=== PATIENT | male | born 1945 | race Caucasian/White ===

== ENCOUNTER 2019-03-01 04:30 | Emergency (ER) | payer MEDICARE ==
[2019-03-01] MEDS ORDERED: ONDANSETRON HCL INJ/PF 4 MG/2 ML SDV IV ONE (05:05)
[2019-03-01] MEDS ORDERED: MORPHINE SULFATE 10 MG/ML INJ IV ONE ×2 (05:05→07:31)
--- NOTE | 2019-03-01 05:07 | ER Document Report ---
ED Medical Screen (RME) - General Chief Complaint: Abdominal Pain Stated Complaint: ABDOMINAL PAIN Time Seen by Provider: 03/01/19 04:57 Notes: 73-year-old male comes to the emergency department by EMS for chief complaint of sharp left-sided abdominal pain that started tonight. He does have some radiation to the flank. Some nausea but no vomiting. He does have a history of kidney stone on the same side. He denies hematuria, he is on a blood thinner for a history of extensive clots. He has had hernia repairs but no other abdominal surgeries reported. He was given 30 mg of Toradol IV by EMS. He does report some symptom relief. - Related Data Allergies/Adverse Reactions: No Known Allergies Allergy (Unverified 03/01/19 04:55) Physical Exam - Vital signs Vitals: Temp Pulse Resp BP Pulse Ox 98.4 F 81 20 152/103 H 96 03/01/19 04:38 03/01/19 04:38 03/01/19 04:38 03/01/19 04:38 03/01/19 04:38 - Abdominal Tenderness: Tender - Abdominal pain over the whole left side of the abdomen with some wincing Course - Re-evaluation Re-evalutation: Pain seems to go all the way up into the left upper quadrant on evaluation. CAT scan will be performed, giving more pain medication, work-up pending. Vital signs unremarkable at this time. Patient is not toxic in appearance. I have greeted and performed a rapid initial assessment of this patient. A comprehensive ED assessment and evaluation of the patient, analysis of test results and completion of the medical decision making process will be conducted by additional ED providers. - Vital Signs Vital signs: Temp Pulse Resp BP Pulse Ox 98.4 F 81 20 152/103 H 96 03/01/19 04:38 03/01/19 04:38 03/01/19 04:38 03/01/19 04:38 03/01/19 04:38
--- NOTE | 2019-03-01 06:02 | RADIOLOGY REPORT (SQ) ---
EXAM DESCRIPTION: CT ABDOMEN PELVIS WITHOUT IV CONTRAST COMPLETED DATE/TME: 03/01/2019 05:04 CLINICAL HISTORY: 73 years Male, left sided abd pain, hx kidney stones Comparison: None. Technique: No contrast. Coronal and sagittal reformat. This exam was performed according to our departmental dose-optimization program, which includes automated exposure control, adjustment of the mA and/or kV according to patient size and/or use of iterative reconstruction technique.[facility]: Dose Right [facility]: CareDose [facility]: Dose Right [facility]: Teradose 4D [facility]: [employer] LIMITATIONS: None Findings: Indeterminate 2.8 cm macrolobulated lesion of the left pancreatic tail. Recommend multiphase contrast MRI or CT of the pancreas. Left renal stones measure 1.0 cm and 1.2 cm. Right nephrolithiasis measures up to 0.2 cm. Moderate left perinephric fat stranding. Prominence of the proximal left renal collecting system. 1.2 x 0.6 cm right distal ureteral stone within 3 cm of the urinary bladder. No right-sided hydronephrosis or hydroureter. Likely benign renal cyst(s), not definitively characterized. Atherosclerotic vascular disease. Colonic diverticulosis. Small bilateral inguinal fat only hernia. 3 cm umbilical fat only hernia. [id number] bilateral inguinal fat only hernia, right more than left. Atelectasis/scar. Hepatic steatosis. Suture clips of the anterior abdominal wall, midline. Large notochordal remnant of the superior L2 vertebral body. Degenerative disc disease. No ascites. No pneumoperitoneum. No evidence of appendicitis. Appendix not definitively discerned. No gross evidence of gallbladder inflammation or hepatobiliary obstruction. No bowel obstruction. No evidence of abdominal aortic aneurysm. Unenhanced lower thorax, abdominopelvic structures, and musculoskeleton appear otherwise grossly unremarkable. Impression: 1. Indeterminate 2.8 cm macrolobulated lesion of the left pancreatic tail. Recommend multiphase contrast MRI or CT of the pancreas. 2. Moderate left perinephric fat stranding and prominence of the left proximal renal collecting system. Differential etiologies include recent vesicoureteral reflux, pyelonephritis, or low-grade obstruction. 3. Bilateral nephrolithiasis and 1.2 cm right distal ureteral stone. No significant right-sided hydronephrosis or hydroureter.
--- NOTE | 2019-03-01 06:39 | ER Document Report ---
ED General - General Chief Complaint: Abdominal Pain Stated Complaint: ABDOMINAL PAIN Time Seen by Provider: 03/01/19 04:57 - HPI Notes: This is a pleasant 73-year-old male who presents to the emergency department for evaluation of left-sided flank pain. It began in the middle the night. He states he started vomiting, was questioning whether or not he had food poisoning. He then started having pain more in the left flank, and realized it could potentially be a stone. He denies any gross hematuria. No fevers. His emesis was nonbloody, nonbilious. Normal bowel movements. He had no other acute complaints or concerns. He is here in town visiting his granddaughter. He states he follows with the urologist twice a year. He states they are following a known stone on the left. He has been told that "as long as it does not move, we are okay." - Related Data Allergies/Adverse Reactions: No Known Allergies Allergy (Unverified 03/01/19 04:55) Past Medical History - General Information source: Patient - Social History Smoking Status: Never Smoker Frequency of alcohol use: None Drug Abuse: None Family History: Reviewed & Not Pertinent Patient has suicidal ideation: No Patient has homicidal ideation: No - Past Medical History Cardiac Medical History: Reports: Hx DVT, Hx Pulmonary Embolism Renal/ Medical History: Reports: Hx Benign Prostatic Hyperplasia, Hx Kidney Stones, Hx Renal Insufficiency - Recently told creatinine was mildly elevated. Denies: Hx Peritoneal Dialysis Musculoskeletal Medical History: Reports Other - Chronic back pain Past Surgical History: Reports: Hx Abdominal Surgery - umb hernia repair, Hx Orthopedic Surgery - bilaterl knee; left carpal tunnel, Hx Vascular Surgery - IVC filter Review of Systems - Review of Systems Constitutional: No symptoms reported EENT: No symptoms reported Cardiovascular: No symptoms reported Respiratory: No symptoms reported Gastrointestinal: See HPI Genitourinary: See HPI Male Genitourinary: No symptoms reported Musculoskeletal: No symptoms reported Skin: No symptoms reported Neurological/Psychological: No symptoms reported Physical Exam - Vital signs Vitals: Temp Pulse Resp BP Pulse Ox 98.4 F 81 20 152/103 H 96 03/01/19 04:38 03/01/19 04:38 03/01/19 04:38 03/01/19 04:38 03/01/19 04:38 - Notes Notes: Vital signs reviewed, please refer to chart. Head is normocephalic, atraumatic. Pupils equal round, reactive to light. Neck is supple without meningismus. Heart is regular rate and rhythm. Lungs are clear to auscultation bilaterally. Abdomen is soft, tender in the left mid abdomen and flank without rebound or guarding, normoactive bowel sounds throughout. Extremities without cyanosis, clubbing. Posterior calves are nontender. Peripheral pulses are equal. Skin is warm and dry. Patient is awake, alert, neurological exam is nonfocal. Course - Re-evaluation Re-evalutation: 03/01/19 06:39 Patient presents emergency department for evaluation. He had CT scan and blood work, as well as urinalysis, ordered through triage. He was given Toradol by EMS in route. He was given morphine and Zofran here, rates his pain as "comfortable." 03/01/19 07:27 CT scan, blood work, urinalysis obtained. Blood shows renal insufficiency, not unlikely far from his baseline according to patient and his . CT scan was reviewed with the patient. We did comment on the 1.2 cm stone on the right, but again he has absolutely no symptoms on the right. He has been being followed with ultrasounds on the left. It is likely that the intrarenal stone is the etiology of this pain and stranding. He has a urologist that he sees very frequently back home. He feels comfortable with being followed up there. He is had no fevers. The importance of being reevaluated should he develop fever, intractable vomiting, intractable pain, was stressed to the patient. He understands this. He is under pain management contract. I will go ahead and just dispense 6 [place] from here. He will be given a small amount more morphine to control his pain. Patient was already aware of the pancreatic tail lesion. It is being followed with MRIs. He is to return to the emergency department with worsening or new concerning symptoms of any sort. 03/01/19 07:31 - Vital Signs Vital signs: Temp Pulse Resp BP Pulse Ox 98.4 F 81 11 L 168/94 H 95 03/01/19 04:38 03/01/19 04:38 03/01/19 07:01 03/01/19 07:01 03/01/19 07:01 - Laboratory Result Diagrams: 03/01/19 06:11 03/01/19 06:11 Laboratory results interpreted by me: 03/01/19 03/01/19 03/01/19 06:11 06:11 07:00 RDW 14.2 H Plt Count 148 L Seg Neutrophils % 78.9 H Potassium 3.4 L BUN 30 H Creatinine 1.51 H Est GFR ( Amer) 55 L Est GFR (Non-Af Amer) 46 L Glucose 158 H Urine Blood LARGE H - Diagnostic Test Radiology reviewed: Reports reviewed Discharge - Discharge Clinical Impression: Ureterolithiasis Hydronephrosis Qualifiers: Hydronephrosis type: with renal calculous obstruction Qualified Code(s): N13.2 - Hydronephrosis with renal and ureteral calculous obstruction Condition: Stable Disposition: HOME, SELF-CARE Instructions: Kidney Stone ([facility]) Additional Instructions: Follow-up with your urologist as soon as possible. Continue your Flomax as directed. Zofran as needed for nausea. [place] as needed for breakthrough pain. If you develop fevers, increased vomiting, or any other new or concerning symptoms, return immediately to the emergency department for reevaluation.
[2019-03-01 06:40] LABS: ABSOLUTE EOSINOPHILS # (AUTO) 0.1 10^3/uL (0.0-0.6); ABSOLUTE LYMPHOCYTES (AUTO) 1.5 10^3/uL (0.5-4.7); ABSOLUTE MONOCYTES (AUTO) 0.5 10^3/uL (0.1-1.4); ABSOLUTE NEUT (AUTO) 7.8 10^3/uL (1.7-8.2); BASOPHILS % (AUTO) 0.2 % (0-2); EOSINOPHILS % (AUTO) 0.6 % (0-6); HEMATOCRIT 43.3 % (37.9-51.0); MEAN CORPUSCULAR HEMOGLOBIN 30.9 pg (27.0-33.4); MEAN CORPUSCULAR HGB CONC 34.6 g/dL (32.0-36.0); MEAN CORPUSCULAR VOLUME 89 fl (80-97); MONOCYTES % (AUTO) 5.3 % (3-13); PLATELET COUNT 148 10^3/uL (150-450); RED BLOOD COUNT 4.85 10^6/uL (4.35-5.55); RED CELL DISTRIBUTION WIDTH 14.2 % (11.5-14.0); SEGMENTED NEUTROPHILS % (AUTO) 78.9 % (42-78); TOTAL CELLS COUNTED % (AUTO) 100 %; WHITE BLOOD COUNT 9.9 10^3/uL (4.0-10.5)
[2019-03-01 06:49] LABS: ALANINE AMINOTRANSFERASE 36 U/L (21-72); ALBUMIN 3.9 g/dL (3.5-5.0); ALKALINE PHOSPHATASE 76 U/L (38-126); ANION GAP 9 (5-19); ASPARTATE AMINO TRANSFERASE 36 U/L (17-59); BILIRUBIN,DIRECT 0.2 mg/dL (0.0-0.4); BILIRUBIN,TOTAL 0.9 mg/dL (0.2-1.3); BLOOD UREA NITROGEN 30 mg/dL (7-20); CALCIUM 9.5 mg/dL (8.4-10.2); CARBON DIOXIDE 28 mmol/L (22-30); CHLORIDE 105 mmol/L (98-107); GLUCOSE 158 mg/dL (75-110); LIPASE 108.6 U/L (23-300); POTASSIUM 3.4 mmol/L (3.6-5.0); SODIUM 141.7 mmol/L (137-145); TOTAL PROTEIN 6.8 g/dL (6.3-8.2)
[2019-03-01 07:11] LABS: APPEARANCE,URINE CLEAR; BILIRUBIN,URINE NEGATIVE (NEGATIVE); COLOR,URINE YELLOW; GLUCOSE, URINE NEGATIVE (NEGATIVE); KETONES,URINE NEGATIVE (NEGATIVE)
[2019-03-01 07:12] LABS: LEUKOCYTE ESTERASE,URINE NEGATIVE (NEGATIVE); NITRITE,URINE NEGATIVE (NEGATIVE); PROTEIN,URINE NEGATIVE (NEGATIVE); UROBILINOGEN,URINE NEGATIVE mg/dL (<2.0)
[2019-03-01] MEDS ORDERED: HYDROCODONE/ACETAMINOPHEN 5-325 MG (6 TAB/ER DISP) PO PRN (07:30)
[2019-03-01 08:16] VITALS: BP 147/83
--- NOTE | 2019-03-01 19:19 | EKG REPORT ---
SEVERITY:- ABNORMAL ECG - SINUS RHYTHM FIRST DEGREE AV BLOCK BORDERLINE PROLONGED QT INTERVAL : Confirmed by: Iraida Colon 01-Mar-2019 19:18:26
== END 2019-03-01 08:29 | disposition home or self-care (01) ==
LOC: ER 04:30
DX: N13.2 Hydronephrosis with renal and ureteral calculous obstruction (principal); R10.9 Unspecified abdominal pain; R11.10 Vomiting, unspecified; Z86.718 Personal history of other venous thrombosis and embolism; Z86.711 Personal history of pulmonary embolism
CPT/HCPCS: 93005; 96376; 99284; 96374; 96375; 36415; 83690; 85025; 80053; 81001; 84484; 74176; 93010; J2270; J2405; A9270

== ENCOUNTER 2019-03-02 20:21 | Emergency (ER) | payer MEDICARE ==
[2019-03-02] MEDS ORDERED: NORMAL SALINE 1000 ML 1,000 ML IV ONE ×2 (21:11→23:08)
[2019-03-02] MEDS ORDERED: ONDANSETRON HCL INJ/PF 4 MG/2 ML SDV IV ONE (21:11)
[2019-03-02] MEDS ORDERED: HYDROMORPHONE HCL INJ/PF 2 MG/ML AMPULE IV ONE (21:11)
--- NOTE | 2019-03-02 21:12 | ER Document Report ---
ED GI/ - General Chief Complaint: Abdominal Pain Stated Complaint: LEFT ABDOMINAL PAIN Time Seen by Provider: 03/02/19 21:03 Notes: Patient is a 73-year-old male that comes to the emergency department for chief complaint of sharp left-sided abdominal pain with some radiation to the flank. He reports nausea but denies vomiting. He was seen here on 03/01/2019, had a CAT scan, diagnosed with 1.2 cm kidney stone in the right ureter and then kidney stone in the left kidney. He insists he has no pain on the right side. He has a history of hernia repairs, he follows with urology [id number] in [place]. He also has a history of extensive blood clots, on blood thinners, denies hematuria that is noticeable. He states that he received Toradol by EMS and feels much better. He states this was the same as before, he felt good after going home until just now. No fever reported. He is on pain management at home for his back. - Related Data Allergies/Adverse Reactions: No Known Allergies Allergy (Unverified 03/01/19 04:55) Past Medical History - General Information source: Patient - Social History Smoking Status: Never Smoker Frequency of alcohol use: None Drug Abuse: None Lives with: Family Family History: Reviewed & Not Pertinent - Past Medical History Cardiac Medical History: Reports: Hx DVT, Hx Pulmonary Embolism Renal/ Medical History: Reports: Hx Benign Prostatic Hyperplasia, Hx Kidney Stones, Hx Renal Insufficiency - Recently told creatinine was mildly elevated. Denies: Hx Peritoneal Dialysis Past Surgical History: Reports: Hx Abdominal Surgery - umb hernia repair, Hx Orthopedic Surgery - bilaterl knee; left carpal tunnel, Hx Vascular Surgery - IVC filter - Immunizations Immunizations up to date: Yes Hx Diphtheria, Pertussis, Tetanus Vaccination: Yes Review of Systems - Review of Systems Constitutional: No symptoms reported EENT: No symptoms reported Cardiovascular: No symptoms reported Respiratory: No symptoms reported Gastrointestinal: See HPI Genitourinary: See HPI Male Genitourinary: No symptoms reported Musculoskeletal: No symptoms reported Skin: No symptoms reported Hematologic/Lymphatic: No symptoms reported Neurological/Psychological: No symptoms reported Physical Exam - Notes Notes: GENERAL: Mildly uncomfortable, no severe distress, alert and oriented HEAD: Normocephalic, atraumatic. EYES: Pupils equal, round, and reactive to light. Extraocular movements intact. ENT: Oral mucosa moist, tongue midline. Oropharynx unremarkable. LUNGS: Clear to auscultation bilaterally, no wheezes, rales, or rhonchi. No respiratory distress. HEART: Regular rate and rhythm. No murmur ABDOMEN: There is mild tenderness over the left mid to lower abdomen generally without guarding, rigidity, or distention. Bowel sounds present. GENITOURINARY: No swelling, pain, or concerning findings EXTREMITIES: Moves all 4 extremities spontaneously. No edema, normal radial and dorsalis pedis pulses bilaterally. No cyanosis. BACK: no cervical, thoracic, lumbar midline tenderness. No saddle anesthesia, normal distal neurovascular exam. Moves all extremities in full range of motion. NEUROLOGICAL: Alert and oriented x3. Normal speech. Cranial nerves II through XII grossly intact. PSYCH: Normal affect, normal mood. SKIN: Warm, dry, normal turgor. No rashes or lesions noted. Course - Re-evaluation Re-evalutation: Reviewed CAT scan from previously. Patient has pain mainly on the left side surprisingly although this is also consistent with previous visit. He has a 1.2 cm right sided ureterolithiasis and left-sided nephrolithiasis. He states sympt oms are similar to before but came back. He did have relief from IV medications until they came back. On reevaluation he is much more comfortable after Dilaudid. CBC unremarkable. Chemistry shows elevated creatinine at 2.39 now, previously 1.5. Unfortunately patient was given 30 mg of IV Toradol by EMS yesterday and today. Patient does get good relief from this, however explained his creatinine from his elevating. It could also be because of the stones. Patient was given IV fluids here. Fortunately his urinalysis is clear, there is no sign of infection. He does not have a fever, he is well-appearing, his vital signs are unremarkable. I did discuss his worsening creatinine, importance for close urology management, patient requests to be discharged, he is here on vacation but he is requesting to be discharged nonetheless. He states that he will call his urologist in [place] at 8:00 in the morning and he will be traveling home tomorrow. Patient is with his family and they are very agreeable with this plan. Patient is on home pain management, provided with nausea medication after discussion. They state that they will return here or seek close emergency evaluation if he worsens in any way. Provided with a copy of his CAT scan and labs. - Laboratory Result Diagrams: 03/02/19 22:32 03/02/19 22:32 Laboratory results interpreted by me: 03/02/19 03/02/19 03/02/19 22:25 22:32 22:32 WBC 11.6 H RDW 14.2 H Absolute Neutrophils 8.7 H Sodium 136.0 L BUN 37 H Creatinine 2.39 H Est GFR ( Amer) 33 L Est GFR (Non-Af Amer) 27 L Glucose 141 H Total Protein 6.1 L Albumin 3.4 L Urine Blood SMALL H Discharge - Discharge Clinical Impression: Ureterolithiasis, Flank pain, Nausea Abdominal pain Qualifiers: Abdominal location: left lower quadrant Qualified Code(s): R10.32 - Left lower quadrant pain Condition: Stable Disposition: HOME, SELF-CARE Additional Instructions: Your urine does not show an infection. Your kidney functioning has worsened, you were given IV fluids for this, however this needs to be closely rechecked. Because of your recurring symptoms, ureteral and kidney stones, and creatinine p lease call your urologist tomorrow for very close follow-up. Return/be seen again if you develop worsening symptoms including fever/chills, vomiting, worsening pain, or any other concerning symptoms. Prescriptions: Ondansetron [Zofran Odt 4 mg Tablet] 1 - 2 tab PO Q4H PRN #15 tab.rapdis PRN Reason: For Nausea/Vomiting
[2019-03-02 22:45] LABS: ABSOLUTE EOSINOPHILS # (AUTO) 0.1 10^3/uL (0.0-0.6); ABSOLUTE LYMPHOCYTES (AUTO) 1.8 10^3/uL (0.5-4.7); ABSOLUTE NEUT (AUTO) 8.7 10^3/uL (1.7-8.2); BASOPHILS % (AUTO) 0.3 % (0-2); EOSINOPHILS % (AUTO) 0.9 % (0-6); HEMATOCRIT 42.4 % (37.9-51.0); HEMOGLOBIN 14.5 g/dL (13.5-17.0); LYMPHOCYTES % (AUTO) 15.2 % (13-45); MEAN CORPUSCULAR HEMOGLOBIN 30.9 pg (27.0-33.4); MEAN CORPUSCULAR HGB CONC 34.3 g/dL (32.0-36.0); MEAN CORPUSCULAR VOLUME 90 fl (80-97); MONOCYTES % (AUTO) 8.6 % (3-13); PLATELET COUNT 157 10^3/uL (150-450); RED CELL DISTRIBUTION WIDTH 14.2 % (11.5-14.0); TOTAL CELLS COUNTED % (AUTO) 100 %; WHITE BLOOD COUNT 11.6 10^3/uL (4.0-10.5)
[2019-03-02 22:49] LABS: APPEARANCE,URINE CLEAR; BILIRUBIN,URINE NEGATIVE (NEGATIVE); COLOR,URINE YELLOW; GLUCOSE, URINE NEGATIVE (NEGATIVE); KETONES,URINE NEGATIVE (NEGATIVE); LEUKOCYTE ESTERASE,URINE NEGATIVE (NEGATIVE); NITRITE,URINE NEGATIVE (NEGATIVE); PROTEIN,URINE NEGATIVE (NEGATIVE); UROBILINOGEN,URINE NEGATIVE mg/dL (<2.0)
[2019-03-02 23:04] LABS: ALANINE AMINOTRANSFERASE 25 U/L (21-72); ALBUMIN 3.4 g/dL (3.5-5.0); ALKALINE PHOSPHATASE 64 U/L (38-126); ANION GAP 9 (5-19); ASPARTATE AMINO TRANSFERASE 22 U/L (17-59); BILIRUBIN,DIRECT 0.3 mg/dL (0.0-0.4); BILIRUBIN,TOTAL 1.2 mg/dL (0.2-1.3); BLOOD UREA NITROGEN 37 mg/dL (7-20); CARBON DIOXIDE 25 mmol/L (22-30); CHLORIDE 102 mmol/L (98-107); GLUCOSE 141 mg/dL (75-110); TOTAL PROTEIN 6.1 g/dL (6.3-8.2)
[2019-03-02] MEDS ORDERED: ONDANSETRON ODT 4 MG TAB (6 TAB/ER DISP) PO PRN (23:29)
[2019-03-03 01:02] VITALS: BP 100/87
== END 2019-03-03 02:10 | disposition home or self-care (01) ==
LOC: ER 20:21
DX: N20.1 Calculus of ureter (principal); R10.9 Unspecified abdominal pain; R10.32 Left lower quadrant pain; R11.0 Nausea; Z87.442 Personal history of urinary calculi; Z86.718 Personal history of other venous thrombosis and embolism; Z86.711 Personal history of pulmonary embolism
CPT/HCPCS: 99283; 96361; 96374; 96375; 36415; 87086; 85025; 80053; 81001; J1170; J2405; J7030; A9270